=== PATIENT | female | born 1980 | race Hispanic/Latino ===

== ENCOUNTER → 2017-11-14 | Outpatient (CLI) | payer OTHER | END | disposition home or self-care (01) | LOC: RAH 08:45 | PROVIDERS: ATTEND Internal Medicine Cardiovascular Disease | DX: I35.0 Nonrheumatic aortic (valve) stenosis (principal); I35.1 Nonrheumatic aortic (valve) insufficiency | CPT/HCPCS: 93306 ==

== ENCOUNTER → 2021-12-20 | Outpatient (CLI) | payer BC | END | disposition home or self-care (01) | LOC: OIH 11:28 | PROVIDERS: ATTEND Internal Medicine Cardiovascular Disease | DX: I35.0 Nonrheumatic aortic (valve) stenosis (principal); I51.7 Cardiomegaly; Z95.3 Presence of xenogenic heart valve | CPT/HCPCS: 93306 ==